=== PATIENT | female | born 1950 | race Caucasian/White ===

== ENCOUNTER 2022-12-03 07:49 | Day surgery (SDC) | payer MEDICARE, OTHER ==
[2022-12-03] MEDS: Polymyxin B/Trimethoprim 10 ML Bottle EYERT SCH ×4 (07:56→09:51)
[2022-12-03 07:58] VITALS: PULSE 60
[2022-12-03] MEDS: Brimonidine 0.2% Ophth Soln 5 ML Bottle EYERT SCH ×4 (08:01→09:51)
[2022-12-03] MEDS: Lidocaine 1% PF 2 ML SDV INJECT SCH ×2 (08:02→09:38)
[2022-12-03] MEDS: Tetracaine HCl/PF 0.5% 4 ML Bottle EYEBOTH SCH ×5 (08:02→09:37)
[2022-12-03] MEDS: Phenylephrine 2.5% Ophth Soln 2 ML Bot EYERT SCH ×7 (08:02→09:26)
[2022-12-03] MEDS ORDERED: Ondansetron 4 MG/2 ML SDV IVPUSH PRN (08:02)
[2022-12-03] MEDS: Cefuroxime 10 MG/ML SYRINGE EYERT SCH ×2 (08:03→09:50)
[2022-12-03] MEDS: Pilocarpine 4% Ophth Soln 15 ML Bot EYERT SCH ×2 (08:03→09:51)
[2022-12-03] MEDS: Tropicamide 1% Ophth Soln 15 ML Bottle EYERT SCH ×4 (08:13→08:54)
[2022-12-03 10:11] VITALS: BP 119/78
== END 2022-12-03 10:02 ==
LOC: JD.SDS 07:49
PROVIDERS: ATTEND Ophthalmology
DX: H25.813 Combined forms of age-related cataract, bilateral (principal); F41.9 Anxiety disorder, unspecified; M19.90 Unspecified osteoarthritis, unspecified site; F32.A Depression, unspecified; Z88.6 Allergy status to analgesic agent; Z88.5 Allergy status to narcotic agent; Z88.1 Allergy status to other antibiotic agents; Z79.899 Other long term (current) drug therapy
CPT/HCPCS: 66984; A9270; J0697; 00142; 99100; J3490

== ENCOUNTER 2023-01-07 07:29 | Day surgery (SDC) | payer MEDICARE, OTHER ==
[2023-01-07] MEDS: Polymyxin B/Trimethoprim 10 ML Bottle EYELF SCH ×4 (07:31→09:12)
[2023-01-07] MEDS ORDERED: Ondansetron 4 MG/2 ML SDV IVPUSH PRN (07:31)
[2023-01-07] MEDS: Brimonidine 0.2% Ophth Soln 5 ML Bottle EYELF SCH ×4 (07:34→09:12)
[2023-01-07] MEDS: Phenylephrine 2.5% Opth Drops 10 mL EYELF SCH ×6 (07:38→08:55)
[2023-01-07] MEDS: Tropicamide 1% Ophth Soln 15 ML Bottle EYELF SCH ×4 (07:46→08:19)
[2023-01-07] MEDS: Cefuroxime 10 MG/ML SYRINGE EYELF SCH ×2 (07:56→09:10)
[2023-01-07] MEDS: Tetracaine HCl/PF 0.5% 4 ML Bottle EYEBOTH SCH ×5 (07:56→09:03)
[2023-01-07] MEDS: Lidocaine 1% PF 2 ML SDV INJECT SCH ×2 (07:56→09:02)
[2023-01-07] MEDS: Pilocarpine 4% Ophth Soln 15 ML Bot EYELF SCH ×2 (07:57→09:12)
[2023-01-07 09:33] VITALS: BP 155/74; PULSE 72
== END 2023-01-07 09:26 | disposition home or self-care (01) ==
LOC: JD.SDS 07:29
PROVIDERS: ATTEND Ophthalmology
DX: H25.812 Combined forms of age-related cataract, left eye (principal); F41.9 Anxiety disorder, unspecified; F32.A Depression, unspecified; M19.90 Unspecified osteoarthritis, unspecified site; Z88.6 Allergy status to analgesic agent; Z88.5 Allergy status to narcotic agent; Z79.899 Other long term (current) drug therapy; Z98.890 Other specified postprocedural states
CPT/HCPCS: A9270-GY; J0697; J3490

== ENCOUNTER 2023-08-12 13:28 | Day surgery (SDC) | payer MEDICARE, OTHER ==
[~2023-08-12 13:28] MED LIST: Cefuroxime 10 MG/ML SYRINGE EYERT SCH; Lidocaine 1% PF 2 ML SDV INJECT SCH; Pilocarpine 4% Ophth Soln 15 ML Bot EYERT SCH
[2023-08-12] MEDS: Polymyxin B/Trimethoprim 10 ML Bottle EYERT SCH ×3 (13:50→15:21)
[2023-08-12] MEDS: Brimonidine 0.2% Ophth Soln 5 ML Bottle EYERT SCH ×3 (13:55→15:21)
[2023-08-12] MEDS: Tropicamide 1% Ophth Soln 3 ML Bottle EYERT SCH ×4 (14:09→14:52)
[2023-08-12] MEDS: Phenylephrine 2.5% Ophth Soln 2 ML Bot EYERT SCH ×4 (14:17→15:04)
[2023-08-12] MEDS: Tetracaine HCl/PF 0.5% 4 ML Bottle EYEBOTH SCH ×4 (14:56→15:13)
[2023-08-12 15:42] VITALS: BP 114/76; PULSE 72
== END 2023-08-12 15:35 ==
LOC: JD.SDS 13:28
PROVIDERS: ATTEND Ophthalmology
DX: H52.31 Anisometropia (principal); F41.9 Anxiety disorder, unspecified; F32.A Depression, unspecified; H53.10 Unspecified subjective visual disturbances; Z96.1 Presence of intraocular lens; Z79.899 Other long term (current) drug therapy; Z88.8 Allergy status to other drugs, medicaments and biological substances; Z88.6 Allergy status to analgesic agent
CPT/HCPCS: 66985; A9270; 00142; 99100; J3490; V2632

== ENCOUNTER 2023-09-09 20:56 | Emergency (ER) | payer MEDICARE, OTHER ==
[2023-09-09] MEDS: Diazepam 5 MG Tab PO ONE (22:21)
[2023-09-09 22:37] VITALS: BP 112/91; PULSE 81
== END 2023-09-09 22:22 | disposition home or self-care (01) ==
LOC: JD.ED 20:56
DX: S05.02XA Injury of conjunctiva and corneal abrasion without foreign body, left eye, initial encounter (principal); H57.12 Ocular pain, left eye; E66.9 Obesity, unspecified; Z68.41 Body mass index [BMI] 40.0-44.9, adult; Z88.5 Allergy status to narcotic agent; Z88.6 Allergy status to analgesic agent; X58.XXXA Exposure to other specified factors, initial encounter
CPT/HCPCS: 99283; A9270-GY